=== PATIENT | male | born 1990 | race Caucasian/White ===

== ENCOUNTER 2019-02-02 09:43 | Day surgery (SDC) | payer OTHER ==
[2019-02-02] MEDS ORDERED: LACTATED RINGER'S 1,000 ML IV (11:30)
[2019-02-02] MEDS ORDERED: MIDAZOLAM 1 MG/ML 2 ML INJ (12:39)
[2019-02-02] MEDS ORDERED: FENTAnyl 50 MCG/ML VIAL ×3 (12:39→17:06)
[2019-02-02] MEDS: LIDOCAINE 1%/EPI (1:100,000) (MDV) 20 ML (13:51)
[2019-02-02] MEDS: OXYMETAZOLINE 0.05% 15 ML NAS SPRAY NASAL (13:52)
[2019-02-02] MEDS ORDERED: BACITRACIN/POLYMYXIN 28.35 GM OINT TOP (14:36)
[2019-02-02] MEDS ORDERED: PROPOFOL 20 ML (17:58)
[2019-02-02] MEDS ORDERED: LIDOCAINE 2% (SDV) 5 ML INJ (17:58)
[2019-02-02] MEDS ORDERED: ONDANSETRON 4 MG INJ (17:58)
[2019-02-02] MEDS ORDERED: METOCLOPRAMIDE 10 MG INJ (17:58)
[2019-02-02] MEDS ORDERED: ROCURONIUM 50 MG INJ (17:58)
[2019-02-02] MEDS ORDERED: CEFAZOLIN 1 GM INJ (17:58)
[2019-02-02] MEDS ORDERED: MEPERIDINE 25 MG INJ IV (18:30)
[2019-02-02] MEDS ORDERED: FENTAnyl 50 MCG/ML VIAL IV (18:30)
[2019-02-02] MEDS ORDERED: ONDANSETRON 4 MG INJ IV (18:30)
[2019-02-02] MEDS ORDERED: DIPHENHYDRAMINE 50 MG INJ IV (18:30)
[2019-02-02] MEDS ORDERED: HYDROmorphONE 1 MG/5 ML IV SYRINGE IV ×2 (18:30)
[2019-02-02] MEDS ORDERED: METOCLOPRAMIDE 10 MG INJ IV (18:30)
[2019-02-02] MEDS ORDERED: HYDROCODONE/APAP (5/325) TAB ×2 (19:34→19:35)
[2019-02-02] MEDS: HYDROCODONE/APAP (5/325) TAB PO (19:37)
== END 2019-02-02 20:35 | disposition home or self-care (01) ==
LOC: SDS 09:43
DX: J34.3 Hypertrophy of nasal turbinates (principal); J34.89 Other specified disorders of nose and nasal sinuses; M95.0 Acquired deformity of nose
CPT/HCPCS: 30140; 88300